=== PATIENT | female | born 2000 | race Caucasian/White ===

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

== ENCOUNTER 2020-11-02 11:47 | Emergency (ER) | payer SELFPAY ==
[~2020-11-02] VITALS: Ht 167.6 cm; Wt 71.6 kg
[2020-11-02 11:53] VITALS: BP 100/65
--- NOTE | 2020-11-02 12:42 | NUR ---
BUSINESS SERVICES SALES AGENT: Patient/Caregiver given discharge instructions and they have confirmed that they understand the instructions. Patient ambulatory with steady gait.
== END 2020-11-02 12:59 | disposition home or self-care (01) ==
LOC: ED 12:45
DX: H60.312 Diffuse otitis externa, left ear (principal)
CPT/HCPCS: 99283

== ENCOUNTER 2021-01-25 14:51 | Emergency (ER) | payer MEDICAID ==
[~2021-01-25] VITALS: Ht 167.6 cm; Wt 72.8 kg
--- NOTE | 2021-01-25 15:32 | NUR ---
[place] line attendant: Pt to room via WC from lobby at this time.
[2021-01-25] MEDS ORDERED: LORazepam 1MG TABLET ONE (15:46)
--- NOTE | 2021-01-25 15:55 | NUR ---
LABS DRAWN BY NEMO Equipment. MEDS GIVEN PER ERP ORDER FOR ANXIETY. CALL LIGHT WITHIN REACH, FRIEND AT BS.
[2021-01-25] MEDS ORDERED: LORazepam 1MG TABLET PO ONE (16:00)
[2021-01-25 16:06] LABS: BASOPHILS % (AUTO) 0 % (0-1); EOSINOPHILS % (AUTO) 2 % (1-7); LYMPHOCYTES % (AUTO) 14 % (22-44); MEAN CORPUSCULAR HEMOGLOBIN 33.1 pg (27.0-34.8); MEAN CORPUSCULAR HGB CONC 35.8 g/dL (32.4-35.8); MEAN PLATELET VOLUME 7.6 fL (7.4-10.4); MONOCYTES % (AUTO) 6 % (2-9); NEUTROPHILS % (AUTO) 78 % (42-75); PLATELET COUNT 301 x10^3/uL (130-400); RED CELL DISTRIBUTION WIDTH 12.9 % (9.6-15.2)
[2021-01-25 16:13] LABS: ALBUMIN 4.4 g/dL (3.4-5.0); ANION GAP 14 mmol/L (5-15); CALCIUM 9.3 mg/dL (8.5-10.1); CHLORIDE 105 mmol/L (98-107); CREATININE 0.68 mg/dL (0.55-1.02)
[2021-01-25 16:49] VITALS: BP 136/78
== END 2021-01-25 17:27 | disposition home or self-care (01) ==
LOC: ED 16:30
DX: F41.1 Generalized anxiety disorder (principal); R42 Dizziness and giddiness; R20.2 Paresthesia of skin; R00.0 Tachycardia, unspecified
CPT/HCPCS: 36415; 80048; 82040; 84703; 85025; 93005; 99284